=== PATIENT | male | born 1955 | race Caucasian/White ===

== ENCOUNTER 2018-11-29 20:23 | Inpatient (IN) | payer OTHER ==
[~2018-11-29] VITALS: Ht 180.3 cm; Wt 87.2 kg
[2018-11-29] MEDS ORDERED: ADENOSINE 6 MG/2 ML ONE (20:57)
[2018-11-29] MEDS ORDERED: ASPIRIN 81 MG TABLET CHEW PO ONE (21:00)
[2018-11-29] MEDS ORDERED: PLEASE ENTER ALLERGIES MC SCH (21:00)
[2018-11-29] MEDS ORDERED: ADENOSINE 6 MG/2 ML IVPush ONE ×2 (21:00→21:30)
[2018-11-29] MEDS ORDERED: SODIUM CHLORIDE FLUSH 10ML SYR IVF ONE (21:00)
[2018-11-29 21:02] LABS: BASOPHILS # (AUTO) 0.04 x10^3/uL (0-0.1); BASOPHILS % (AUTO) 0 % (0-1); EOSINOPHILS # (AUTO) 0.09 x10^3/uL (0-0.4); EOSINOPHILS % (AUTO) 1 % (1-7); LYMPHOCYTES # (AUTO) 1.48 x10^3/uL (1-3.4); LYMPHOCYTES % (AUTO) 15 % (22-44); MD NO; MEAN CORPUSCULAR HEMOGLOBIN 32.7 pg (27.5-34.5); MEAN CORPUSCULAR VOLUME 93.5 fL (81-97); MEAN PLATELET VOLUME 7.9 fL (7.4-10.4); MONOCYTES % (AUTO) 6 % (2-9); NEUTROPHILS # (AUTO) 8.01 x10^3/uL (1.8-6.8); NEUTROPHILS % (AUTO) 78 % (42-75); PLATELET COUNT 307 x10^3/uL (130-400); RED BLOOD COUNT 4.05 x10^6/uL (4.38-5.82)
[2018-11-29] MEDS ORDERED: DILTIAZEM 125 MG in DEXTROSE 5% 100 ML IV SCH (21:06)
[2018-11-29 21:09] LABS: INTERNATIONAL NORMALIZED RATIO 1.19 (0.93-1.1); PROTHROMBIN TIME 12.5 Seconds (9.6-11.5)
[2018-11-29 21:10] LABS: ALBUMIN 3.5 g/dL (3.4-5.0); ANION GAP 9 mmol/L (5-15); CHLORIDE 87 mmol/L (98-107); CREATININE 1.45 mg/dL (0.7-1.3)
[2018-11-29] MEDS ORDERED: ASPIRIN 81 MG TABLET CHEW ONE (21:18)
[2018-11-29] MEDS ORDERED: DILTIAZEM 5 MG/ML, 5ML ONE ×2 (21:18→21:46)
[2018-11-29 21:27] LABS: TROPONIN I 0.106 ng/mL (0.000-0.045)
[2018-11-29] MEDS ORDERED: DILTIAZEM 5 MG/ML, 5ML IV ONE ×3 (21:30→22:30)
[2018-11-29] MEDS ORDERED: METOPROLOL 1 MG/ML, 5ML ONE (22:22)
[2018-11-29] MEDS ORDERED: METOPROLOL 1 MG/ML, 5ML IVPush PRN (22:30)
[2018-11-29] MEDS ORDERED: METOPROLOL 1 MG/ML, 5ML IVPush STA (22:33)
[2018-11-29] MEDS ORDERED: ACETAMINOPHEN 500 MG TABLET ONE (23:13)
[2018-11-29] MEDS: SODIUM CHLORIDE 0.9% 1,000 ML IV SCH (23:15)
[2018-11-29] MEDS ORDERED: BISACODYL 10 MG SUPP PR PRN (23:30)
[2018-11-29] MEDS ORDERED: POLYETHYLENE GLYCOL 17 GM PACKET PO PRN (23:30)
[2018-11-29] MEDS ORDERED: ONDANSETRON 2MG/ML, 2ML IVPush PRN (23:30)
[2018-11-29] MEDS ORDERED: ACETAMINOPHEN 500 MG TABLET PO ONE (23:30)
[2018-11-29] MEDS ORDERED: SODIUM CHLORIDE 0.9% 1,000ML IVBOLUS ONE (23:30)
[2018-11-29] MEDS ORDERED: HEPARIN 5,000 UNITS/ML, 1ML ONE (23:39)
[2018-11-29] MEDS ORDERED: HEPARIN 25,000 UNITS/500ML PMX 500 ML ONE (23:40)
[2018-11-29] MEDS ORDERED: ETOMIDATE 20 MG/10 ML ONE (23:44)
[2018-11-29] MEDS ORDERED: HEPARIN 5,000 UNITS/ML, 1ML IV ONE (23:45)
[2018-11-29 23:57] LABS: FREE T4 (FREE THYROXINE) 1.3 ng/dL (0.76-1.46)
[2018-11-29] MEDS: HEPARIN 25,000 UNITS/500ML PMX 500 ML IV PRN (23:59)
[2018-11-30] LABS: HEMOGLOBIN A1C 6.4 % (4.2-6.3)
[2018-11-30] MEDS ORDERED: ETOMIDATE 20 MG/10 ML IVPush ONE
[2018-11-30] MEDS ORDERED: ACETAMINOPHEN 325 MG TABLET ONE (01:18)
[2018-11-30] MEDS: ACETAMINOPHEN 325 MG TABLET PO PRN ×2 (01:20→04:57)
[2018-11-30 01:29] LABS: TROPONIN I 0.146 ng/mL (0.000-0.045)
[2018-11-30] MEDS ORDERED: LORazepam 1MG TABLET PO PRN ×4 (02:00)
[2018-11-30] MEDS ORDERED: LORazepam 0.5MG TABLET PO PRN (02:00)
[2018-11-30] MEDS ORDERED: FOLIC ACID 1 MG TABLET PO ONE (02:00)
[2018-11-30] MEDS ORDERED: NACL IV ONE (02:00)
[2018-11-30] MEDS ORDERED: FOLIC ACID IV ONE (02:00)
[2018-11-30] MEDS ORDERED: D5 IV ONE (02:00)
[2018-11-30] MEDS ORDERED: MAGNESIUM SULFATE IV ONE (02:00)
[2018-11-30] MEDS ORDERED: ACETAMINOPHEN 325 MG TABLET PO PRN (02:00)
[2018-11-30] MEDS ORDERED: MVI ADULT IV ONE (02:00)
[2018-11-30 02:35] VITALS: BP 121/85
[2018-11-30 03:24] LABS: BASOPHILS # (AUTO) 0.03 x10^3/uL (0-0.1); BASOPHILS % (AUTO) 0 % (0-1); EOSINOPHILS % (AUTO) 1 % (1-7); LYMPHOCYTES # (AUTO) 2.01 x10^3/uL (1-3.4); LYMPHOCYTES % (AUTO) 17 % (22-44); MD NO; MEAN CORPUSCULAR HEMOGLOBIN 32.5 pg (27.5-34.5); MEAN CORPUSCULAR HGB CONC 34.4 g/dL (33.2-36.2); MEAN CORPUSCULAR VOLUME 94.3 fL (81-97); MEAN PLATELET VOLUME 7.7 fL (7.4-10.4); MONOCYTES # (AUTO) 0.92 x10^3/uL (0.2-0.8); MONOCYTES % (AUTO) 8 % (2-9); NEUTROPHILS # (AUTO) 8.94 x10^3/uL (1.8-6.8); NEUTROPHILS % (AUTO) 75 % (42-75); PLATELET COUNT 268 x10^3/uL (130-400); RED CELL DISTRIBUTION WIDTH 13.3 % (9.4-14.8)
[2018-11-30] MEDS ORDERED: GABAPENTIN 300 MG CAPSULE PO ONE (03:30)
[2018-11-30 03:36] LABS: ALBUMIN 2.9 g/dL (3.4-5.0); ANION GAP 12 mmol/L (5-15); CALCIUM 6.9 mg/dL (8.5-10.1); CHLORIDE 88 mmol/L (98-107)
[2018-11-30 03:40] LABS: ALANINE AMINOTRANSFERASE 222 U/L (12-78); ALKALINE PHOSPHATASE 130 U/L (45-117); BILIRUBIN,TOTAL 1.2 mg/dL (0.2-1.0); CHOL/HDL RATIO 4.5; CHOLESTEROL, TOTAL 118 mg/dL (140-239); CREATININE 1.92 mg/dL (0.7-1.3); HDL CHOL % 22 % (26-37); HDL CHOLESTEROL (DIRECT) 26 mg/dL (40-60); LDL CHOLESTEROL,CALCULATED 82 mg/dL (54-169); LDL/HDL RATIO 3.2 (0.5-3.0); TOTAL PROTEIN 5.6 g/dL (6.4-8.2); TRIGLYCERIDES 48 mg/dL (50-200); VLDL CHOLESTEROL 10 mg/dL (0-25)
[2018-11-30] MEDS ORDERED: ASPIRIN 81 MG TABLET EC PO SCH (06:00)
[2018-11-30] MEDS ORDERED: FENTANYL PF 100 MCG/2ML ONE (08:41)
[2018-11-30] MEDS ORDERED: methylPREDNISolone SOD SUCC 125 MG/2 ML IVPush STA (08:52)
[2018-11-30] MEDS ORDERED: FAMOTIDINE 20 MG/2 ML IVPush STA (08:52)
[2018-11-30] MEDS ORDERED: DIPHENHYDRAMINE 50 MG/ML, 1ML IVPush STA (08:52)
[2018-11-30] MEDS ORDERED: DIPHENHYDRAMINE 50 MG/ML, 1ML ONE (08:54)
[2018-11-30] MEDS ORDERED: methylPREDNISolone SOD SUCC 125 MG/2 ML ONE (08:54)
[2018-11-30] MEDS ORDERED: FAMOTIDINE 20 MG/2 ML ONE (08:54)
[2018-11-30] MEDS ORDERED: FENTANYL PF 100 MCG/2ML IV ONE (09:00)
[2018-11-30] MEDS: MULTIVITAMINS/MINERALS TABLET PO SCH (09:00)
[2018-11-30] MEDS: SENNA/DOCUSATE TABLET PO SCH (09:00)
[2018-11-30] MEDS: HEPARIN 5,000 UNITS/ML, 1ML IV PRN ×2 (09:31→16:57)
[2018-11-30] MEDS ORDERED: SODIUM CHLORIDE 0.9%, 500ML IVBOLUS ONE (10:00)
[2018-11-30 10:09] LABS: TROPONIN I 0.228 ng/mL (0.000-0.045)
[2018-11-30] MEDS ORDERED: FOLIC ACID 1 MG, THIAMINE 200 MG, MVI ADULT 10 ML in D5%-0.9% NACL 1,000 ML IV SCH (10:30)
[2018-11-30 10:35] LABS: TRIGLYCERIDES 45 mg/dL (50-200)
[2018-11-30 10:45] LABS: ANION GAP 15 mmol/L (5-15); CALCIUM 7.6 mg/dL (8.5-10.1); CHLORIDE 87 mmol/L (98-107); CREATININE 2.37 mg/dL (0.7-1.3)
[2018-11-30 10:46] LABS: MICROSCOPIC INDICATED
[2018-11-30 10:56] LABS: CULTURE INDICATED? NO
[2018-11-30 11:03] LABS: RAPID INFLUENZA A Negative (Negative); RAPID INFLUENZA B Negative (Negative)
[2018-11-30] MEDS: SODIUM CHLORIDE 0.9% 1,000 ML IV SCH (11:03)
[2018-11-30] MEDS: INSULIN LISPRO 100 UNITS/ML, PEN SQ-INSULIN SCH ×3 (11:03→20:00)
[2018-11-30] MEDS ORDERED: LORazepam 2 MG/ML, 1ML ONE (12:24)
[2018-11-30] MEDS ORDERED: LIDOCAINE-MPF 1%, 2ML ENDO PRN (12:30)
[2018-11-30] MEDS ORDERED: PHARMACY MAY ADJ FOR RENAL FX MC SCH (12:30)
[2018-11-30 12:46] LABS: AMPHETAMINE SCREEN, URINE Negative (Negative); BARBITURATE SCREEN, URINE Negative (Negative); BENZODIAZEPINE SCREEN, URINE Negative (Negative); CANNABINOID SCREEN, URINE Positive (Negative); COCAINE SCREEN, URINE Negative (Negative); METHADONE SCREEN, URINE Negative (Negative); OPIATE SCREEN, URINE Negative (Negative); POTASSIUM,URINE RANDOM 41 mmol/L; SODIUM,URINE RANDOM 8 mmol/L
[2018-11-30 12:55] LABS: CHLORIDE,URINE RANDOM < 10 mmol/L
[2018-11-30 13:00] LABS: OSMOLALITY,URINE 629 mOsm/kg (500-850)
[2018-11-30] MEDS: PANTOPRAZOLE 40 MG IV IVPush SCH (13:00)
[2018-11-30] MEDS ORDERED: LORazepam 2 MG/ML, 1ML IVPush PRN (13:00)
[2018-11-30 13:18] LABS: TRIGLYCERIDES 51 mg/dL (50-200)
[2018-11-30 13:20] LABS: CREATINE KINASE, TOTAL 429 U/L (39-308)
[2018-11-30] MEDS ORDERED: DOPAMINE/D5W PMX 250 ML IV PRN (14:00)
[2018-11-30] MEDS: MEROPENEM 1 GM in SODIUM CHLORIDE 0.9% 100 ML IV SCH ×2 (16:08→22:51)
[2018-11-30] MEDS: LINEZOLID PMX 600MG/300ML 300 ML IV SCH (16:57)
[2018-11-30] MEDS ORDERED: SODIUM BICARBONATE 1 MEQ/ML, 50ML VIAL IVPush ONE (17:30)
[2018-11-30 18:48] LABS: ANION GAP 11 mmol/L (5-15); CALCIUM 6.8 mg/dL (8.5-10.1); CHLORIDE 94 mmol/L (98-107); CREATININE 1.61 mg/dL (0.7-1.3)
[2018-11-30] MEDS: PROPOFOL 100 ML IV PRN (21:53)
[2018-11-30] MEDS: MIDAZOLAM HCL 50 MG in SODIUM CHLORIDE 0.9% 240 ML IV PRN (23:06)
[2018-11-30 23:22] LABS: ANION GAP 11 mmol/L (5-15); CHLORIDE 93 mmol/L (98-107); CREATININE 1.52 mg/dL (0.7-1.3)
[2018-12-01] MEDS: HEPARIN 25,000 UNITS/500ML PMX 500 ML IV PRN
[2018-12-01] MEDS: INSULIN LISPRO 100 UNITS/ML, PEN SQ-INSULIN SCH ×5 (00:02→22:05)
[2018-12-01] MEDS: DOBUTAMINE/D5W PMX 250 ML IV PRN (01:23)
[2018-12-01] MEDS: LINEZOLID PMX 600MG/300ML 300 ML IV SCH ×2 (02:00→14:35)
[2018-12-01] MEDS: PROPOFOL 100 ML IV PRN ×4 (02:10→18:48)
[2018-12-01 04:00] VITALS: BP 131/60
[2018-12-01 05:10] LABS: BASOPHILS # (AUTO) 0.04 x10^3/uL (0-0.1); BASOPHILS % (AUTO) 1 % (0-1); EOSINOPHILS % (AUTO) 0 % (1-7); LYMPHOCYTES # (AUTO) 0.51 x10^3/uL (1-3.4); LYMPHOCYTES % (AUTO) 6 % (22-44); MD NO; MEAN CORPUSCULAR HEMOGLOBIN 31.8 pg (27.5-34.5); MEAN CORPUSCULAR VOLUME 93.4 fL (81-97); MEAN PLATELET VOLUME 7.7 fL (7.4-10.4); MONOCYTES # (AUTO) 0.38 x10^3/uL (0.2-0.8); MONOCYTES % (AUTO) 5 % (2-9); NEUTROPHILS # (AUTO) 7.41 x10^3/uL (1.8-6.8); NEUTROPHILS % (AUTO) 89 % (42-75); PLATELET COUNT 233 x10^3/uL (130-400); RED BLOOD COUNT 3.69 x10^6/uL (4.38-5.82); RED CELL DISTRIBUTION WIDTH 13.4 % (9.4-14.8)
[2018-12-01 05:20] LABS: ALBUMIN 2.8 g/dL (3.4-5.0); ANION GAP 12 mmol/L (5-15); CALCIUM 6.8 mg/dL (8.5-10.1); CHLORIDE 92 mmol/L (98-107); CREATININE 1.96 mg/dL (0.7-1.3)
[2018-12-01 05:28] LABS: ALANINE AMINOTRANSFERASE 1182 U/L (12-78); ALKALINE PHOSPHATASE 122 U/L (45-117); BILIRUBIN,TOTAL 0.6 mg/dL (0.2-1.0); TOTAL PROTEIN 5.4 g/dL (6.4-8.2)
[2018-12-01] MEDS: MEROPENEM 1 GM in SODIUM CHLORIDE 0.9% 100 ML IV SCH ×3 (06:13→22:06)
[2018-12-01] MEDS: PANTOPRAZOLE 40 MG IV IVPush SCH (09:12)
[2018-12-01] MEDS: MULTIVITAMINS/MINERALS TABLET PO SCH (09:12)
[2018-12-01] MEDS: SENNA/DOCUSATE TABLET PO SCH (09:12)
[2018-12-01] MEDS ORDERED: NOREPINEPHRINE 4 MG in SODIUM CHLORIDE 0.9% 246 ML IV PRN (12:00)
[2018-12-01] MEDS: MIDAZOLAM HCL 50 MG in SODIUM CHLORIDE 0.9% 240 ML IV PRN ×2 (13:46→21:55)
[2018-12-01] MEDS: THIAMINE 200 MG in SODIUM CHLORIDE 0.9% 50 ML IV SCH (14:17)
[2018-12-01 14:19] LABS: FIO2 45 %
[2018-12-01] MEDS ORDERED: HEPARIN wt. based STROKE protocol MC PRN (14:30)
[2018-12-01] MEDS ORDERED: HEPARIN 25,000 UNITS/500ML PMX 500 ML IV PRN (14:30)
[2018-12-01 16:06] LABS: ANION GAP 10 mmol/L (5-15); CALCIUM 7.2 mg/dL (8.5-10.1); CHLORIDE 94 mmol/L (98-107); CREATININE 1.43 mg/dL (0.7-1.3)
[2018-12-02] MEDS: PROPOFOL 100 ML IV PRN ×2 (00:53→05:17)
[2018-12-02] MEDS: DOBUTAMINE/D5W PMX 250 ML IV PRN (01:16)
[2018-12-02] MEDS: LINEZOLID PMX 600MG/300ML 300 ML IV SCH ×2 (02:35→15:22)
[2018-12-02 04:00] VITALS: BP 110/54
[2018-12-02] MEDS: INSULIN LISPRO 100 UNITS/ML, PEN SQ-INSULIN SCH ×4 (04:05→21:54)
[2018-12-02 05:48] LABS: INTERNATIONAL NORMALIZED RATIO 1.21 (0.93-1.1); PROTHROMBIN TIME 12.7 Seconds (9.6-11.5)
[2018-12-02 05:49] LABS: CHLORIDE 92 mmol/L (98-107)
[2018-12-02 05:56] LABS: ALANINE AMINOTRANSFERASE 947 U/L (12-78); ALBUMIN 2.6 g/dL (3.4-5.0); ALKALINE PHOSPHATASE 96 U/L (45-117); ANION GAP 7 mmol/L (5-15); BILIRUBIN,TOTAL 0.5 mg/dL (0.2-1.0); CALCIUM 7.3 mg/dL (8.5-10.1); CREATININE 1.66 mg/dL (0.7-1.3); TOTAL PROTEIN 5.3 g/dL (6.4-8.2)
[2018-12-02] MEDS: ASPIRIN 81 MG TABLET CHEW PO SCH (06:33)
[2018-12-02] MEDS: MEROPENEM 1 GM in SODIUM CHLORIDE 0.9% 100 ML IV SCH ×3 (06:33→22:47)
[2018-12-02] MEDS ORDERED: DIGOXIN 0.25 MG/ML, 2ML IVPush ONE (11:00)
[2018-12-02] MEDS: FENTANYL PF 100 MCG/2ML IVPush PRN ×5 (11:15→21:48)
[2018-12-02] MEDS: THIAMINE 200 MG in SODIUM CHLORIDE 0.9% 50 ML IV SCH (13:48)
[2018-12-02] MEDS: SENNA/DOCUSATE TABLET PO SCH (13:51)
[2018-12-02] MEDS: MULTIVITAMINS/MINERALS TABLET PO SCH (13:51)
[2018-12-02] MEDS: PANTOPRAZOLE 40 MG IV IVPush SCH (13:51)
[2018-12-02] MEDS: MIDAZOLAM HCL 50 MG in SODIUM CHLORIDE 0.9% 240 ML IV PRN (15:22)
[2018-12-02] MEDS: DIGOXIN 0.25 MG/ML, 2ML IVPush SCH ×2 (17:10→22:47)
[2018-12-02] MEDS: MIDAZOLAM HCL 100 MG in SODIUM CHLORIDE 0.9% 230 ML IV PRN (21:24)
[2018-12-03] MEDS: LINEZOLID PMX 600MG/300ML 300 ML IV SCH ×2 (03:10→20:37)
[2018-12-03 03:35] LABS: BASOPHILS # (AUTO) 0.06 x10^3/uL (0-0.1); BASOPHILS % (AUTO) 1 % (0-1); EOSINOPHILS # (AUTO) 0.07 x10^3/uL (0-0.4); EOSINOPHILS % (AUTO) 1 % (1-7); LYMPHOCYTES % (AUTO) 20 % (22-44); MD NO; MEAN CORPUSCULAR HEMOGLOBIN 32.4 pg (27.5-34.5); MEAN CORPUSCULAR HGB CONC 34.2 g/dL (33.2-36.2); MEAN CORPUSCULAR VOLUME 94.7 fL (81-97); MEAN PLATELET VOLUME 7.3 fL (7.4-10.4); MONOCYTES # (AUTO) 0.63 x10^3/uL (0.2-0.8); MONOCYTES % (AUTO) 10 % (2-9); NEUTROPHILS % (AUTO) 68 % (42-75); PLATELET COUNT 205 x10^3/uL (130-400); RED BLOOD COUNT 3.54 x10^6/uL (4.38-5.82); RED CELL DISTRIBUTION WIDTH 13.6 % (9.4-14.8)
[2018-12-03 03:38] LABS: ALANINE AMINOTRANSFERASE 705 U/L (12-78); ALBUMIN 2.5 g/dL (3.4-5.0); ANION GAP 6 mmol/L (5-15); CALCIUM 6.8 mg/dL (8.5-10.1); CHLORIDE 97 mmol/L (98-107); CREATININE 1.16 mg/dL (0.7-1.3); TRIGLYCERIDES 77 mg/dL (50-200)
[2018-12-03 03:40] LABS: ALKALINE PHOSPHATASE 92 U/L (45-117); BILIRUBIN,TOTAL 0.4 mg/dL (0.2-1.0); TOTAL PROTEIN 5.2 g/dL (6.4-8.2)
[2018-12-03] MEDS: FENTANYL PF 100 MCG/2ML IVPush PRN ×5 (03:56→21:24)
[2018-12-03 04:00] VITALS: BP 119/59
[2018-12-03] MEDS: INSULIN LISPRO 100 UNITS/ML, PEN SQ-INSULIN SCH ×4 (04:37→22:10)
[2018-12-03] MEDS: MEROPENEM 1 GM in SODIUM CHLORIDE 0.9% 100 ML IV SCH ×2 (06:20→19:37)
[2018-12-03] MEDS: ASPIRIN 81 MG TABLET CHEW PO SCH (06:20)
[2018-12-03] MEDS: MIDAZOLAM HCL 100 MG in SODIUM CHLORIDE 0.9% 230 ML IV PRN ×2 (07:51→18:06)
[2018-12-03] MEDS ORDERED: ERGOCALCIFEROL 50,000 UNIT CAPSULE PO SCH (08:00)
[2018-12-03] MEDS: PANTOPRAZOLE 40 MG IV IVPush SCH (09:02)
[2018-12-03] MEDS: MULTIVITAMINS/MINERALS TABLET PO SCH (09:02)
[2018-12-03] MEDS: SENNA/DOCUSATE TABLET PO SCH (09:03)
[2018-12-03] MEDS: CALCITRIOL 0.25 MCG CAPSULE PO SCH (12:52)
[2018-12-03] MEDS: CHOLECALCIFEROL 1,000 UNIT TABLET PO SCH (12:52)
[2018-12-03] MEDS: THIAMINE 200 MG in SODIUM CHLORIDE 0.9% 50 ML IV SCH (13:08)
[2018-12-03] MEDS ORDERED: DIGOXIN 0.25 MG/ML, 2ML IVPush SCH (14:00)
[2018-12-03] MEDS ORDERED: CARVEDILOL 3.125 MG TABLET PO SCH (14:30)
[2018-12-03] MEDS: CARVEDILOL 3.125 MG TABLET PO SCH (16:41)
[2018-12-03] MEDS: HEPARIN 5,000 UNITS/ML, 1ML IV PRN ×2 (18:03→20:42)
[2018-12-03] MEDS: HEPARIN 25,000 UNITS/500ML PMX 500 ML IV PRN (18:05)
[2018-12-03] MEDS ORDERED: METHOCARBAMOL 500 MG TABLET PO PRN (18:30)
[2018-12-04] MEDS: FENTANYL PF 100 MCG/2ML IVPush PRN ×5 (00:14→18:42)
[2018-12-04] MEDS: MEROPENEM 1 GM in SODIUM CHLORIDE 0.9% 100 ML IV SCH ×2 (03:20→11:33)
[2018-12-04] MEDS: MIDAZOLAM HCL 100 MG in SODIUM CHLORIDE 0.9% 230 ML IV PRN (03:21)
[2018-12-04] MEDS: INSULIN LISPRO 100 UNITS/ML, PEN SQ-INSULIN SCH ×4 (03:29→23:15)
[2018-12-04 03:30] VITALS: BP 120/53
[2018-12-04 03:55] LABS: ALBUMIN 2.4 g/dL (3.4-5.0); ANION GAP 2 mmol/L (5-15); CALCIUM 7.6 mg/dL (8.5-10.1); CHLORIDE 98 mmol/L (98-107)
[2018-12-04 04:00] LABS: ALANINE AMINOTRANSFERASE 453 U/L (12-78); ALKALINE PHOSPHATASE 78 U/L (45-117); BILIRUBIN,TOTAL 0.5 mg/dL (0.2-1.0); CREATININE 0.78 mg/dL (0.7-1.3); TOTAL PROTEIN 5.5 g/dL (6.4-8.2)
[2018-12-04] MEDS: ASPIRIN 81 MG TABLET CHEW PO SCH (06:14)
[2018-12-04] MEDS: CARVEDILOL 3.125 MG TABLET PO SCH ×2 (06:14→18:27)
[2018-12-04] MEDS: LINEZOLID PMX 600MG/300ML 300 ML IV SCH (09:35)
[2018-12-04] MEDS: THIAMINE 200 MG in SODIUM CHLORIDE 0.9% 50 ML IV SCH (09:35)
[2018-12-04] MEDS: CALCITRIOL 0.25 MCG CAPSULE PO SCH (09:35)
[2018-12-04] MEDS: PANTOPRAZOLE 40 MG IV IVPush SCH (09:35)
[2018-12-04] MEDS: MULTIVITAMINS/MINERALS TABLET PO SCH (09:35)
[2018-12-04] MEDS: SENNA/DOCUSATE TABLET PO SCH (09:36)
[2018-12-04] MEDS: HEPARIN 25,000 UNITS/500ML PMX 500 ML IV PRN (10:10)
[2018-12-04] MEDS: ENOXAPARIN 100 MG/ML SQ SCH ×2 (11:32→23:20)
[2018-12-04] MEDS: CHOLECALCIFEROL 1,000 UNIT TABLET PO SCH (11:32)
[2018-12-04] MEDS: DIGOXIN 0.25 MG TABLET PO SCH (13:30)
[2018-12-04] MEDS ORDERED: DEXMEDETOMIDINE 1,000 MCG in SODIUM CHLORIDE 0.9% 240 ML IV PRN (14:30)
[2018-12-04] MEDS: OXYcodone 5 MG/5 ML ORAL.SOL UDC PO PRN (23:12)
[2018-12-05] MEDS: FENTANYL PF 100 MCG/2ML IVPush PRN ×2 (01:02→03:41)
[2018-12-05 04:07] VITALS: BP 116/74
[2018-12-05] MEDS: INSULIN LISPRO 100 UNITS/ML, PEN SQ-INSULIN SCH ×4 (04:50→22:18)
[2018-12-05 05:32] LABS: BASOPHILS # (AUTO) 0.04 x10^3/uL (0-0.1); BASOPHILS % (AUTO) 1 % (0-1); EOSINOPHILS # (AUTO) 0.18 x10^3/uL (0-0.4); EOSINOPHILS % (AUTO) 3 % (1-7); LYMPHOCYTES # (AUTO) 1.08 x10^3/uL (1-3.4); LYMPHOCYTES % (AUTO) 17 % (22-44); MD NO; MEAN CORPUSCULAR HGB CONC 33.9 g/dL (33.2-36.2); MEAN CORPUSCULAR VOLUME 94.5 fL (81-97); MEAN PLATELET VOLUME 7.2 fL (7.4-10.4); MONOCYTES # (AUTO) 0.79 x10^3/uL (0.2-0.8); MONOCYTES % (AUTO) 12 % (2-9); NEUTROPHILS # (AUTO) 4.34 x10^3/uL (1.8-6.8); NEUTROPHILS % (AUTO) 68 % (42-75); PLATELET COUNT 185 x10^3/uL (130-400); RED BLOOD COUNT 3.81 x10^6/uL (4.38-5.82); RED CELL DISTRIBUTION WIDTH 13.6 % (9.4-14.8)
[2018-12-05 05:34] LABS: ALBUMIN 2.5 g/dL (3.4-5.0); ANION GAP 8 mmol/L (5-15); CALCIUM 7.5 mg/dL (8.5-10.1); CHLORIDE 96 mmol/L (98-107)
[2018-12-05] MEDS: ASPIRIN 81 MG TABLET CHEW PO SCH (05:34)
[2018-12-05] MEDS: CARVEDILOL 3.125 MG TABLET PO SCH ×2 (05:35→20:25)
[2018-12-05 05:38] LABS: ALANINE AMINOTRANSFERASE 309 U/L (12-78); ALKALINE PHOSPHATASE 79 U/L (45-117); BILIRUBIN,TOTAL 0.5 mg/dL (0.2-1.0); CREATININE 1.03 mg/dL (0.7-1.3); TOTAL PROTEIN 5.8 g/dL (6.4-8.2)
[2018-12-05] MEDS: CALCITRIOL 0.25 MCG CAPSULE PO SCH (08:41)
[2018-12-05] MEDS: MULTIVITAMINS/MINERALS TABLET PO SCH (08:41)
[2018-12-05] MEDS: PANTOPRAZOLE 40 MG IV IVPush SCH (08:41)
[2018-12-05] MEDS: CHOLECALCIFEROL 1,000 UNIT TABLET PO SCH (08:42)
[2018-12-05] MEDS: DIGOXIN 0.25 MG TABLET PO SCH (08:42)
[2018-12-05] MEDS: SENNA/DOCUSATE TABLET PO SCH (08:42)
[2018-12-05] MEDS: THIAMINE 200 MG in SODIUM CHLORIDE 0.9% 50 ML IV SCH (08:43)
[2018-12-05] MEDS ORDERED: LACTULOSE 20 GM/30 ML UDC PO PRN (09:30)
[2018-12-05] MEDS ORDERED: BISACODYL 10 MG SUPP PR PRN (09:30)
[2018-12-05] MEDS: ENOXAPARIN 100 MG/ML SQ SCH (12:00)
[2018-12-05] MEDS ORDERED: FUROSEMIDE 40 MG/4 ML IV ONE (12:00)
[2018-12-05] MEDS ORDERED: ALBUTEROL/IPRATROPIUM 2.5MG/0.5MG, 3 ML NPPB PRN (13:00)
[2018-12-05] MEDS: SENNOSIDES 8.8 MG/5 ML ORAL SOL NG SCH (22:01)
[2018-12-05] MEDS: OXYcodone 5 MG/5 ML ORAL.SOL UDC PO PRN (22:08)
[2018-12-06] MEDS: ENOXAPARIN 100 MG/ML SQ SCH (00:11)
[2018-12-06 04:00] VITALS: BP 165/82
[2018-12-06] MEDS: INSULIN LISPRO 100 UNITS/ML, PEN SQ-INSULIN SCH ×4 (05:00→20:56)
[2018-12-06] MEDS: CARVEDILOL 3.125 MG TABLET PO SCH (05:44)
[2018-12-06] MEDS: ASPIRIN 81 MG TABLET CHEW PO SCH (06:17)
[2018-12-06] MEDS: MULTIVITAMINS/MINERALS TABLET PO SCH (09:00)
[2018-12-06] MEDS: DOCUSATE 50 MG/5 ML, 10ML UDC PO SCH (09:00)
[2018-12-06] MEDS: SENNA/DOCUSATE TABLET PO SCH (09:00)
[2018-12-06 09:32] LABS: BASOPHILS # (AUTO) 0.01 x10^3/uL (0-0.1); BASOPHILS % (AUTO) 0 % (0-1); EOSINOPHILS % (AUTO) 2 % (1-7); LYMPHOCYTES # (AUTO) 0.78 x10^3/uL (1-3.4); LYMPHOCYTES % (AUTO) 13 % (22-44); MD NO; MEAN CORPUSCULAR HEMOGLOBIN 31.4 pg (27.5-34.5); MEAN CORPUSCULAR HGB CONC 33.8 g/dL (33.2-36.2); MEAN CORPUSCULAR VOLUME 92.9 fL (81-97); MEAN PLATELET VOLUME 7.1 fL (7.4-10.4); MONOCYTES # (AUTO) 0.56 x10^3/uL (0.2-0.8); MONOCYTES % (AUTO) 10 % (2-9); NEUTROPHILS # (AUTO) 4.41 x10^3/uL (1.8-6.8); NEUTROPHILS % (AUTO) 75 % (42-75); PLATELET COUNT 188 x10^3/uL (130-400); RED BLOOD COUNT 3.83 x10^6/uL (4.38-5.82); RED CELL DISTRIBUTION WIDTH 13.3 % (9.4-14.8)
[2018-12-06 09:39] LABS: ALANINE AMINOTRANSFERASE 221 U/L (12-78); ALBUMIN 2.7 g/dL (3.4-5.0); ANION GAP 7 mmol/L (5-15); CALCIUM 8.6 mg/dL (8.5-10.1); CHLORIDE 97 mmol/L (98-107); CREATININE 1.01 mg/dL (0.7-1.3)
[2018-12-06] MEDS: CHOLECALCIFEROL 1,000 UNIT TABLET PO SCH (09:39)
[2018-12-06] MEDS: DIGOXIN 0.25 MG TABLET PO SCH (09:40)
[2018-12-06 09:41] LABS: ALKALINE PHOSPHATASE 84 U/L (45-117); BILIRUBIN,TOTAL 0.7 mg/dL (0.2-1.0); TOTAL PROTEIN 6.3 g/dL (6.4-8.2)
[2018-12-06] MEDS: CALCITRIOL 0.25 MCG CAPSULE PO SCH (09:41)
[2018-12-06 09:50] LABS: INTERNATIONAL NORMALIZED RATIO 1.01 (0.93-1.1); PROTHROMBIN TIME 10.7 Seconds (9.6-11.5)
[2018-12-06] MEDS: LISINOPRIL 5 MG TABLET PO SCH ×2 (11:41→20:57)
[2018-12-06] MEDS: RIVAROXABAN 20 MG TABLET PO SCH (17:00)
[2018-12-06] MEDS: OXYcodone 5 MG/5 ML ORAL.SOL UDC PO PRN (18:20)
[2018-12-06] MEDS: CARVEDILOL 6.25 MG TABLET PO SCH (18:20)
[2018-12-06] MEDS ORDERED: TEMAZEPAM 15 MG CAPSULE ONE (20:44)
[2018-12-06] MEDS: SENNOSIDES 8.8 MG/5 ML ORAL SOL NG SCH (20:56)
[2018-12-06] MEDS: TEMAZEPAM 30 MG CAPSULE PO PRN (21:01)
[2018-12-07 04:00] VITALS: BP 150/80
[2018-12-07 04:35] LABS: BASOPHILS # (AUTO) 0.02 x10^3/uL (0-0.1); BASOPHILS % (AUTO) 1 % (0-1); EOSINOPHILS # (AUTO) 0.29 x10^3/uL (0-0.4); EOSINOPHILS % (AUTO) 6 % (1-7); LYMPHOCYTES # (AUTO) 0.91 x10^3/uL (1-3.4); LYMPHOCYTES % (AUTO) 18 % (22-44); MD NO; MEAN CORPUSCULAR HEMOGLOBIN 31.9 pg (27.5-34.5); MEAN CORPUSCULAR HGB CONC 34.1 g/dL (33.2-36.2); MEAN CORPUSCULAR VOLUME 93.7 fL (81-97); MEAN PLATELET VOLUME 6.9 fL (7.4-10.4); MONOCYTES # (AUTO) 0.69 x10^3/uL (0.2-0.8); MONOCYTES % (AUTO) 14 % (2-9); NEUTROPHILS # (AUTO) 3.03 x10^3/uL (1.8-6.8); NEUTROPHILS % (AUTO) 61 % (42-75); PLATELET COUNT 183 x10^3/uL (130-400); RED BLOOD COUNT 3.74 x10^6/uL (4.38-5.82); RED CELL DISTRIBUTION WIDTH 13.4 % (9.4-14.8)
[2018-12-07 04:47] LABS: ANION GAP 3 mmol/L (5-15); CALCIUM 8.3 mg/dL (8.5-10.1); CHLORIDE 100 mmol/L (98-107); CREATININE 0.92 mg/dL (0.7-1.3)
[2018-12-07] MEDS: CARVEDILOL 6.25 MG TABLET PO SCH ×2 (06:06→16:26)
[2018-12-07] MEDS: ASPIRIN 81 MG TABLET CHEW PO SCH (06:06)
[2018-12-07] MEDS: INSULIN LISPRO 100 UNITS/ML, PEN SQ-INSULIN SCH ×4 (07:00→21:00)
[2018-12-07 08:00] VITALS: BP 158/81
[2018-12-07] MEDS: CHOLECALCIFEROL 1,000 UNIT TABLET PO SCH (09:47)
[2018-12-07] MEDS: DOCUSATE 50 MG/5 ML, 10ML UDC PO SCH (09:47)
[2018-12-07] MEDS: LISINOPRIL 5 MG TABLET PO SCH ×2 (09:47→21:45)
[2018-12-07] MEDS: DIGOXIN 0.25 MG TABLET PO SCH (09:47)
[2018-12-07] MEDS: MULTIVITAMINS/MINERALS TABLET PO SCH (09:55)
[2018-12-07] MEDS: SENNA/DOCUSATE TABLET PO SCH (09:55)
[2018-12-07] MEDS: CALCITRIOL 0.25 MCG CAPSULE PO SCH (09:55)
[2018-12-07 10:00] VITALS: BP 142/64
[2018-12-07 12:49] VITALS: BP 168/82
[2018-12-07] MEDS ORDERED: OXYcodone IR 5MG TABLET ONE (14:59)
[2018-12-07] MEDS: OXYcodone 5 MG/5 ML ORAL.SOL UDC PO PRN (15:03)
[2018-12-07] MEDS: RIVAROXABAN 20 MG TABLET PO SCH (16:26)
[2018-12-07 21:31] VITALS: BP 144/71
[2018-12-08 02:45] VITALS: BP 160/82
[2018-12-08] MEDS: ASPIRIN 81 MG TABLET CHEW PO SCH (05:21)
[2018-12-08] MEDS: CARVEDILOL 6.25 MG TABLET PO SCH ×2 (05:21→17:05)
[2018-12-08 08:08] VITALS: BP 162/87
[2018-12-08] MEDS: DIGOXIN 0.25 MG TABLET PO SCH (08:08)
[2018-12-08] MEDS: CHOLECALCIFEROL 1,000 UNIT TABLET PO SCH (08:08)
[2018-12-08] MEDS: SENNA/DOCUSATE TABLET PO SCH (08:08)
[2018-12-08] MEDS: MULTIVITAMINS/MINERALS TABLET PO SCH (08:08)
[2018-12-08] MEDS: CALCITRIOL 0.25 MCG CAPSULE PO SCH (08:08)
[2018-12-08] MEDS: DOCUSATE 50 MG/5 ML, 10ML UDC PO SCH (08:09)
[2018-12-08] MEDS: LISINOPRIL 5 MG TABLET PO SCH ×2 (08:09→17:05)
[2018-12-08] MEDS: INSULIN LISPRO 100 UNITS/ML, PEN SQ-INSULIN SCH ×4 (08:09→20:10)
[2018-12-08 14:31] VITALS: BP 173/84
[2018-12-08 16:46] VITALS: BP 177/90
[2018-12-08] MEDS: RIVAROXABAN 20 MG TABLET PO SCH (17:05)
[2018-12-08 19:40] VITALS: BP 152/73
[2018-12-08] MEDS: TEMAZEPAM 30 MG CAPSULE PO PRN (20:03)
[2018-12-09 02:00] VITALS: BP 171/85
[2018-12-09] MEDS: hydrALAzine 20 MG/ML, 1ML IV PRN ×2 (02:16→14:32)
[2018-12-09 05:00] LABS: BASOPHILS # (AUTO) 0.02 x10^3/uL (0-0.1); BASOPHILS % (AUTO) 1 % (0-1); EOSINOPHILS % (AUTO) 4 % (1-7); LYMPHOCYTES % (AUTO) 21 % (22-44); MD NO; MEAN CORPUSCULAR HEMOGLOBIN 31.9 pg (27.5-34.5); MEAN CORPUSCULAR HGB CONC 34.5 g/dL (33.2-36.2); MEAN CORPUSCULAR VOLUME 92.6 fL (81-97); MONOCYTES # (AUTO) 0.54 x10^3/uL (0.2-0.8); MONOCYTES % (AUTO) 12 % (2-9); NEUTROPHILS % (AUTO) 62 % (42-75); PLATELET COUNT 211 x10^3/uL (130-400); RED BLOOD COUNT 3.65 x10^6/uL (4.38-5.82); RED CELL DISTRIBUTION WIDTH 13.2 % (9.4-14.8)
[2018-12-09 05:11] LABS: ANION GAP 7 mmol/L (5-15); CALCIUM 8.3 mg/dL (8.5-10.1); CHLORIDE 102 mmol/L (98-107); CREATININE 0.97 mg/dL (0.7-1.3)
[2018-12-09] MEDS: ASPIRIN 81 MG TABLET CHEW PO SCH (05:58)
[2018-12-09] MEDS: CARVEDILOL 6.25 MG TABLET PO SCH (05:58)
[2018-12-09] MEDS: INSULIN LISPRO 100 UNITS/ML, PEN SQ-INSULIN SCH ×4 (07:00→20:30)
[2018-12-09 08:31] VITALS: BP 173/109
[2018-12-09] MEDS: LISINOPRIL 5 MG TABLET PO SCH ×2 (08:46→20:27)
[2018-12-09] MEDS: MULTIVITAMINS/MINERALS TABLET PO SCH (08:46)
[2018-12-09] MEDS: CHOLECALCIFEROL 1,000 UNIT TABLET PO SCH (08:46)
[2018-12-09] MEDS: CALCITRIOL 0.25 MCG CAPSULE PO SCH (08:46)
[2018-12-09] MEDS: DIGOXIN 0.25 MG TABLET PO SCH (08:47)
[2018-12-09] MEDS: SENNA/DOCUSATE TABLET PO SCH (09:00)
[2018-12-09] MEDS: DOCUSATE 50 MG/5 ML, 10ML UDC PO SCH (09:00)
[2018-12-09] MEDS ORDERED: REGADENOSON 0.4 MG/5 ML SYRINGE ONE (11:26)
[2018-12-09] MEDS ORDERED: ASPI-515 PO (13:56)
[2018-12-09] MEDS ORDERED: RIVA20TA PO (13:56)
[2018-12-09] MEDS ORDERED: CARV12.543 PO ×2 (13:56)
[2018-12-09] MEDS ORDERED: MULT-484 PO (13:56)
[2018-12-09] MEDS ORDERED: LISI5TAB7 PO ×2 (13:56)
[2018-12-09] MEDS ORDERED: DIGO250T PO ×2 (13:56)
[2018-12-09] MEDS ORDERED: CHOL10003 PO (13:56)
[2018-12-09 13:59] VITALS: BP 172/89
[2018-12-09] MEDS: CARVEDILOL 12.5 MG TABLET PO SCH (18:08)
[2018-12-09] MEDS: RIVAROXABAN 20 MG TABLET PO SCH (18:08)
[2018-12-09 20:02] VITALS: BP 158/73
[2018-12-09] MEDS: TEMAZEPAM 30 MG CAPSULE PO PRN (20:27)
[2018-12-10] VITALS (7 sets, daily range): BP systolic 152–184; BP diastolic 75–99
[2018-12-10] MEDS: ASPIRIN 81 MG TABLET CHEW PO SCH (05:00)
[2018-12-10] MEDS: CARVEDILOL 12.5 MG TABLET PO SCH ×2 (05:00→18:17)
[2018-12-10 05:26] LABS: BASOPHILS # (AUTO) 0.06 x10^3/uL (0-0.1); BASOPHILS % (AUTO) 1 % (0-1); EOSINOPHILS # (AUTO) 0.13 x10^3/uL (0-0.4); EOSINOPHILS % (AUTO) 3 % (1-7); LYMPHOCYTES # (AUTO) 1.09 x10^3/uL (1-3.4); LYMPHOCYTES % (AUTO) 24 % (22-44); MD NO; MEAN CORPUSCULAR HEMOGLOBIN 31.5 pg (27.5-34.5); MEAN CORPUSCULAR HGB CONC 33.9 g/dL (33.2-36.2); MEAN CORPUSCULAR VOLUME 93.1 fL (81-97); MEAN PLATELET VOLUME 7.3 fL (7.4-10.4); MONOCYTES # (AUTO) 0.47 x10^3/uL (0.2-0.8); MONOCYTES % (AUTO) 11 % (2-9); NEUTROPHILS # (AUTO) 2.74 x10^3/uL (1.8-6.8); NEUTROPHILS % (AUTO) 61 % (42-75); PLATELET COUNT 202 x10^3/uL (130-400); RED BLOOD COUNT 3.64 x10^6/uL (4.38-5.82); RED CELL DISTRIBUTION WIDTH 12.5 % (9.4-14.8)
[2018-12-10 05:40] LABS: ANION GAP 8 mmol/L (5-15); CALCIUM 8.5 mg/dL (8.5-10.1); CHLORIDE 103 mmol/L (98-107)
[2018-12-10 05:42] LABS: CREATININE 0.91 mg/dL (0.7-1.3)
[2018-12-10] MEDS: INSULIN LISPRO 100 UNITS/ML, PEN SQ-INSULIN SCH ×4 (07:00→21:00)
[2018-12-10] MEDS: DOCUSATE 50 MG/5 ML, 10ML UDC PO SCH (07:58)
[2018-12-10] MEDS: SENNA/DOCUSATE TABLET PO SCH (07:59)
[2018-12-10] MEDS: LISINOPRIL 5 MG TABLET PO SCH ×2 (08:04→20:45)
[2018-12-10] MEDS: CALCITRIOL 0.25 MCG CAPSULE PO SCH (08:05)
[2018-12-10] MEDS: DIGOXIN 0.25 MG TABLET PO SCH (08:05)
[2018-12-10] MEDS: MULTIVITAMINS/MINERALS TABLET PO SCH (08:05)
[2018-12-10] MEDS: CHOLECALCIFEROL 1,000 UNIT TABLET PO SCH (08:06)
[2018-12-10] MEDS: RIVAROXABAN 20 MG TABLET PO SCH (18:30)
[2018-12-10] MEDS: TEMAZEPAM 30 MG CAPSULE PO PRN (20:45)
[2018-12-11 05:15] VITALS: BP 175/98
[2018-12-11] MEDS: CARVEDILOL 12.5 MG TABLET PO SCH (05:17)
[2018-12-11] MEDS: ASPIRIN 81 MG TABLET CHEW PO SCH (05:17)
[2018-12-11] MEDS ORDERED: DIGO250T PO (07:34)
[2018-12-11] MEDS: LISINOPRIL 5 MG TABLET PO SCH (07:36)
[2018-12-11 07:38] VITALS: BP 171/80
[2018-12-11] MEDS: INSULIN LISPRO 100 UNITS/ML, PEN SQ-INSULIN SCH ×2 (07:39→11:17)
[2018-12-11] MEDS ORDERED: DIGOXIN 0.25 MG TABLET PO SCH (09:00)
[2018-12-11 09:35] VITALS: BP 151/70
[2018-12-11] MEDS: CHOLECALCIFEROL 1,000 UNIT TABLET PO SCH (09:35)
[2018-12-11] MEDS: CALCITRIOL 0.25 MCG CAPSULE PO SCH (09:36)
[2018-12-11] MEDS: MULTIVITAMINS/MINERALS TABLET PO SCH (09:36)
[2018-12-11] MEDS: SENNA/DOCUSATE TABLET PO SCH (09:37)
[2018-12-11] MEDS: DOCUSATE 50 MG/5 ML, 10ML UDC PO SCH (09:37)
[2018-12-11] MEDS ORDERED: LISI5TAB7 PO (10:49)
[2018-12-11] MEDS ORDERED: CARV25TA12 PO (10:49)
[2018-12-11] MEDS ORDERED: CARVEDILOL 25 MG TABLET PO SCH (18:00)
[2018-12-12] MEDS ORDERED: LISINOPRIL 5 MG TABLET PO SCH (08:00)
== END 2018-12-11 12:20 | disposition home or self-care (01) | DRG 207 ==
LOC: ED 22:15 → EDIP 22:26 → CCU 11-30 01:39 → ICU 12-03 11:09 → 5SO 12-07 11:41 → DCLOUNGE 12-11 11:42
PROVIDERS: ADMIT Internal Medicine; ATTEND Family Medicine
PROC: 5A2204Z Restoration of Cardiac Rhythm, Single (ICD-10-PCS; principal; 2018-11-29)
PROC: 0BH18EZ Insertion of Endotracheal Airway into Trachea, Via Natural or Artificial Opening Endoscopic (ICD-10-PCS; 2018-11-30)
PROC: 03HY32Z Insertion of Monitoring Device into Upper Artery, Percutaneous Approach (ICD-10-PCS; 2018-11-30)
PROC: 02HV33Z Insertion of Infusion Device into Superior Vena Cava, Percutaneous Approach (ICD-10-PCS; 2018-11-30)
PROC: 5A1D70Z Performance of Urinary Filtration, Intermittent, Less than 6 Hours Per Day (ICD-10-PCS; 2018-11-30)
PROC: 5A1955Z Respiratory Ventilation, Greater than 96 Consecutive Hours (ICD-10-PCS; 2018-12-01)
PROC: 5A1D70Z Performance of Urinary Filtration, Intermittent, Less than 6 Hours Per Day (ICD-10-PCS; 2018-12-01)
PROC: 5A1D70Z Performance of Urinary Filtration, Intermittent, Less than 6 Hours Per Day (ICD-10-PCS; 2018-12-02)
PROC: 5A1D70Z Performance of Urinary Filtration, Intermittent, Less than 6 Hours Per Day (ICD-10-PCS; 2018-12-03)
DX: J96.00 Acute respiratory failure, unspecified whether with hypoxia or hypercapnia (principal); I21.4 Non-ST elevation (NSTEMI) myocardial infarction; K72.00 Acute and subacute hepatic failure without coma; N17.0 Acute kidney failure with tubular necrosis; J81.1 Chronic pulmonary edema; I47.2 Ventricular tachycardia; D68.69 Other thrombophilia; E87.1 Hypo-osmolality and hyponatremia; E87.4 Mixed disorder of acid-base balance; F10.239 Alcohol dependence with withdrawal, unspecified; I42.0 Dilated cardiomyopathy; I42.6 Alcoholic cardiomyopathy; I45.2 Bifascicular block; I48.92 Unspecified atrial flutter; I50.40 Unspecified combined systolic (congestive) and diastolic (congestive) heart failure; K56.7 Ileus, unspecified; Z99.11 Dependence on respirator [ventilator] status; I13.0 Hypertensive heart and chronic kidney disease with heart failure and stage 1 through stage 4 chronic kidney disease, or unspecified chronic kidney disease; I48.91 Unspecified atrial fibrillation; D64.9 Anemia, unspecified; E11.22 Type 2 diabetes mellitus with diabetic chronic kidney disease; E11.65 Type 2 diabetes mellitus with hyperglycemia; E83.39 Other disorders of phosphorus metabolism; E83.51 Hypocalcemia; F12.90 Cannabis use, unspecified, uncomplicated; F41.1 Generalized anxiety disorder; I07.1 Rheumatic tricuspid insufficiency; I44.0 Atrioventricular block, first degree; K75.89 Other specified inflammatory liver diseases; N18.9 Chronic kidney disease, unspecified; Z79.01 Long term (current) use of anticoagulants; Z79.84 Long term (current) use of oral hypoglycemic drugs; Z81.8 Family history of other mental and behavioral disorders; Z87.891 Personal history of nicotine dependence
CPT/HCPCS: 36415; 36600; 77001; 84145; 87400; 99291; J3490; J7042; 36556; 70450; 70490; 71045; 76700; 76937; 78452; 80048; 80051; 80053; 80061; 80162; 80307; 81001; 82040; 82140; 82306; 82436; 82533; 82550; 82803; 82962; 83036; 83605; 83690; 83735; 83880; 83930; 83935; 83970; 84100; 84133; 84295; 84300; 84439; 84443; 84478; 84484; 84550; 85025; 85384; 85520; 85610; 85730; 86704; 86706; 86803; 87040; 87070; 87081; 87205; 87340; 93005; 93017; 93306; 93308; 93970; 94002; 94003; 94640; C1894; G0378; J0153; J1644; J1650; J1940; J2020; J2185; J2250; J2704; J2785; J3010; J3411; J3475; A9502; C1751; C9113; C9898; J0360; J1160; J1200; J1250; J1642; J1815; J2060; J2930; J7030; J7040; J7050

== ENCOUNTER → 2019-01-29 | Outpatient (CLI) | payer OTHER ==
[~2019-01-29] MED LIST: ASPI-515 PO; CARV12.543 PO; CARV25TA12 PO; CHOL10003 PO; DIGO250T PO; LISI5TAB7 PO; MULT-484 PO; RIVA20TA PO
== END | disposition home or self-care (01) ==
LOC: CFH 07:39
PROVIDERS: ATTEND Internal Medicine Cardiovascular Disease
DX: I08.0 Rheumatic disorders of both mitral and aortic valves (principal); I10 Essential (primary) hypertension
CPT/HCPCS: 93306